=== PATIENT | male | born 1985 | race Caucasian/White ===

== ENCOUNTER 2016-12-14 09:06 | Emergency (ER) | payer BC ==
[2016-12-14] MEDS ORDERED: KETOROLAC 60 MG/2 ML VIAL IVP STA (09:28)
--- NOTE | 2016-12-14 09:30 | ED ---
General Adult HPI - General Chief complaint: Chest Pain Stated complaint: chest pain Time Seen by Provider: 12/14/16 09:15 Source: patient, RN notes reviewed Mode of arrival: wheelchair Limitations: no limitations - History of Present Illness Initial comments: This is a 31-year-old male presents emergency Department complaining of left- sided chest pain. Patient states she's had it before because he pushes huge rolls paper at work. Patient states it occurred about 3 weeks ago and it lasted for 5 days. Patient states it's worse when he is pushing the rolls and it hurts when he touches the area. Patient denies any difficulty breathing or shortness of breath per patient denies any diaphoresis. Patient denies any radiation of pain. Patient denies any nausea vomiting. Patient states he has had no headache denies any numbness weakness. Patient denies lightheadedness or dizziness. Patient denies abdominal pain. Patient denies any recent injury but he doesn't state that he does a lot of repetitive heavy pushing. - Related Data Home Medications Medication Instructions Recorded Confirmed Acetaminophen [Tylenol] 650 mg PO Q4H PRN 12/14/16 12/14/16 Allergies Allergy/AdvReac Type Severity Reaction Status Date / Time No Known Allergies Allergy Verified 12/14/16 09:35 Review of Systems ROS Statement: Those systems with pertinent positive or pertinent negative responses have been documented in the HPI. ROS Other: All systems not noted in ROS Statement are negative. Past Medical History Past Medical History: No Reported History History of Any Multi-Drug Resistant Organisms: None Reported Past Surgical History: No Surgical Hx Reported Past Psychological History: No Psychological Hx Reported Smoking Status: Never smoker Past Alcohol Use History: Occasional Past Drug Use History: None Reported General Exam - General Exam Comments Initial Comments: GENERAL: Patient is well-developed and well-nourished. Patient is nontoxic and well- hydrated and is in no acute distress. ENT: Neck is soft and supple. No significant lymphadenopathy is noted. Oropharynx is clear. Moist mucous membranes. Neck has full range of motion without eliciting any pain. EYES: The sclera were anicteric and conjunctiva were pink and moist. Extraocular movements were intact and pupils were equal round and reactive to light. Eyelids were unremarkable. PULMONARY: Unlabored respirations. Good breath sounds bilaterally. No audible rales rhonchi or wheezing was noted. CARDIOVASCULAR: There is a regular rate and rhythm without any murmurs gallops or rubs. Chest pain is reproducible with palpation ABDOMEN: Soft and nontender with normal bowel sounds. No palpable organomegaly was noted. There is no palpable pulsatile mass. SKIN: Skin is clear with no lesions or rashes and otherwise unremarkable. NEUROLOGIC: Patient is alert and oriented x3. Cranial nerves II through XII are grossly intact. Motor and sensory are also intact. Normal speech, volume and content. Symmetrical smile. MUSCULOSKELETAL: Normal extremities with adequate strength and full range of motion. No lower extremity swelling or edema. No calf tenderness. LYMPHATICS: No significant lymphadenopathy is noted PSYCHIATRIC: Normal psychiatric evaluation. Normal interpersonal interactions appears functionally intact in deals appropriately with others. No signs of depression. Limitations: no limitations Course Vital Signs 12/14/16 12/14/16 09:07 09:16 Temperature 98.0 F Pulse Rate 68 67 Respiratory 20 16 Rate Blood Pressure 133/92 144/95 O2 Sat by Pulse 99 99 Oximetry Medical Decision Making - Medical Decision Making EKG shows sinus bradycardia 54 bpm NE interval 148 QRS is 96 Q-T intervals 408 QTc is 386. EKG shows no ST segment elevation or T-wave abnormalities are noted Patient's chest x-ray shows no acute abnormality Patient received Toradol and it seemed to improve the patient's chest pain. - Lab Data Result diagrams: 12/14/16 09:45 12/14/16 09:45 Lab Results 12/14/16 12/14/16 12/14/16 Range/Units 09:45 09:45 09:45 WBC 3.9 (3.8-10.6) k/uL RBC 5.05 (4.30-5.90) m/uL Hgb 15.5 (13.0-17.5) gm/dL Hct 46.1 (39.0-53.0) % MCV 91.3 (80.0-100.0) fL MCH 30.8 (25.0-35.0) pg MCHC 33.7 (31.0-37.0) g/dL RDW 12.8 (11.5-15.5) % Plt Count 184 (150-450) k/uL Neutrophils % 52 % Lymphocytes % 34 % Monocytes % 7 % Eosinophils % 4 % Basophils % 1 % Neutrophils # 2.0 (1.3-7.7) k/uL Lymphocytes # 1.3 (1.0-4.8) k/uL Monocytes # 0.3 (0-1.0) k/uL Eosinophils # 0.2 (0-0.7) k/uL Basophils # 0.0 (0-0.2) k/uL PT (9.0-12.0) sec INR (<1.1) APTT (22.0-30.0) sec Sodium 142 (137-145) mmol/L Potassium 3.9 (3.5-5.1) mmol/L Chloride 105 (98-107) mmol/L Carbon Dioxide 26 (22-30) mmol/L Anion Gap 11 mmol/L BUN 10 (9-20) mg/dL Creatinine 0.79 (0.66-1.25) mg/dL Est GFR (MDRD) Af Amer >60 (>60 ml/min/1.73 sqM) Est GFR (MDRD) Non-Af >60 (>60 ml/min/1.73 sqM) Glucose 96 (74-99) mg/dL Calcium 8.9 (8.4-10.2) mg/dL Magnesium 2.0 (1.6-2.3) mg/dL Total Bilirubin 0.8 (0.2-1.3) mg/dL AST 23 (17-59) U/L ALT 43 (21-72) U/L Alkaline Phosphatase 80 (38-126) U/L Total Creatine Kinase 45 L (55-170) U/L CK-MB (CK-2) 0.4 (0.0-2.4) ng/mL CK-MB (CK-2) Rel Index 0.9 Troponin I <0.012 (0.000-0.034) ng/mL Total Protein 7.1 (6.3-8.2) g/dL Albumin 4.1 (3.5-5.0) g/dL 12/14/16 Range/Units 09:45 WBC (3.8-10.6) k/uL RBC (4.30-5.90) m/uL Hgb (13.0-17.5) gm/dL Hct (39.0-53.0) % MCV (80.0-100.0) fL MCH (25.0-35.0) pg MCHC (31.0-37.0) g/dL RDW (11.5-15.5) % Plt Count (150-450) k/uL Neutrophils % % Lymphocytes % % Monocytes % % Eosinophils % % Basophils % % Neutrophils # (1.3-7.7) k/uL Lymphocytes # (1.0-4.8) k/uL Monocytes # (0-1.0) k/uL Eosinophils # (0-0.7) k/uL Basophils # (0-0.2) k/uL PT 11.7 (9.0-12.0) sec INR 1.2 (<1.1) APTT 26.0 (22.0-30.0) sec Sodium (137-145) mmol/L Potassium (3.5-5.1) mmol/L Chloride (98-107) mmol/L Carbon Dioxide (22-30) mmol/L Anion Gap mmol/L BUN (9-20) mg/dL Creatinine (0.66-1.25) mg/dL Est GFR (MDRD) Af Amer (>60 ml/min/1.73 sqM) Est GFR (MDRD) Non-Af (>60 ml/min/1.73 sqM) Glucose (74-99) mg/dL Calcium (8.4-10.2) mg/dL Magnesium (1.6-2.3) mg/dL Total Bilirubin (0.2-1.3) mg/dL AST (17-59) U/L ALT (21-72) U/L Alkaline Phosphatase (38-126) U/L Total Creatine Kinase (55-170) U/L CK-MB (CK-2) (0.0-2.4) ng/mL CK-MB (CK-2) Rel Index Troponin I (0.000-0.034) ng/mL Total Protein (6.3-8.2) g/dL Albumin (3.5-5.0) g/dL Disposition Clinical Impression: Chest wall pain Disposition: HOME SELF-CARE Condition: Good Instructions: Chest Wall Pain (ED) Referrals: Brice Henning DO [Primary Care Provider] - 1-2 days Time of Disposition: 11:37
[2016-12-14 10:00] LABS: Basophils % (A) 1 %; CH 32.2; CHCM 35.5; Eosinophils # (A) 0.2 k/uL (0-0.7); Eosinophils % (A) 4 %; HCT 46.1 % (39.0-53.0); HDW 2.75; HGB 15.5 gm/dL (13.0-17.5); Luc # (Auto) 0.11; Luc % (Auto) 3; Lymphocytes # (A) 1.3 k/uL (1.0-4.8); Lymphocytes % (A) 34 %; MCH 30.8 pg (25.0-35.0); MCHC 33.7 g/dL (31.0-37.0); MCV 91.3 fL (80.0-100.0); Mean Platelet Volume 6.9; Monocytes # (A) 0.3 k/uL (0-1.0); Monocytes % (A) 7 %; Neutrophils % (A) 52 %; RBC 5.05 m/uL (4.30-5.90); RDW 12.8 % (11.5-15.5); WBC 3.9 k/uL (3.8-10.6); WBC (Perox) 3.92
--- NOTE | 2016-12-14 10:05 | XR ---
EXAMINATION TYPE: XR chest 2V DATE OF EXAM: 12/14/2016 10:00 AM COMPARISON: NONE HISTORY: Chest pain TECHNIQUE: Frontal and lateral views of the chest are obtained. FINDINGS: There is no focal air space opacity, pleural effusion, or pneumothorax seen. The cardiac silhouette size is within normal limits. The osseous structures are intact. IMPRESSION: No acute cardiopulmonary process.
[2016-12-14 10:14] LABS: INR 1.2 (<1.1); Prothrombin Time 11.7 sec (9.0-12.0)
[2016-12-14 10:15] LABS: ALT 43 U/L (21-72); AST 23 U/L (17-59); Alkaline Phosphatase 80 U/L (38-126); Anion Gap 11 mmol/L; Blood Urea Nitrogen 10 mg/dL (9-20); Calcium 8.9 mg/dL (8.4-10.2); Carbon Dioxide 26 mmol/L (22-30); Chloride 105 mmol/L (98-107); Glucose 96 mg/dL (74-99); Non-African American GFR(MDRD) >60 (>60 ml/min/1.73 sqM); Potassium 3.9 mmol/L (3.5-5.1); Sodium 142 mmol/L (137-145); Total Bilirubin 0.8 mg/dL (0.2-1.3); Total Protein 7.1 g/dL (6.3-8.2)
[2016-12-14 10:42] LABS: Creatine Kinase 45 U/L (55-170)
[2016-12-14 10:54] LABS: Creatine Kinase MB 0.4 ng/mL (0.0-2.4); Troponin I <0.012 ng/mL (0.000-0.034)
[2016-12-14 11:55] VITALS: BP 132/78; PULSE 66; RESP 18; TEMP 97.3
== END 2016-12-14 11:48 | disposition home or self-care (01) ==
LOC: EC 09:06
DX: R07.89 Other chest pain (principal); R00.1 Bradycardia, unspecified
CPT/HCPCS: 99285; 96374; 36415; 93005; 80053; 82550; 82553; 83735; 84484; 85025; 85610; 85730; 71020; J1885

== ENCOUNTER → 2021-08-10 | Outpatient (CLI) | payer MEDICAID ==
[2021-08-10 14:09] LABS: Hepatitis B Surface Antigen Nonreactive (Nonreactive); Hepatitis C IgG Antibody Nonreactive (Nonreactive)
[2021-08-10 19:48] LABS: HIV 2 AB Non-Reactive (Non-Reactive); HIV AB P24 Non-Reactive (Non-Reactive); HIV P24 AG Non-Reactive (Non-Reactive)
[2021-08-11 12:56] LABS: C. trachomatis,PCR Negative (Neg,Equiv); Chlamydia trachomatis Source Urine; N. gonorrhoeae,PCR Negative (Neg,Equiv); Neisseria Source Urine
== END | disposition home or self-care (01) ==
LOC: LABWHC1 07:16
PROVIDERS: ATTEND Obstetrics & Gynecology
DX: Z01.812 Encounter for preprocedural laboratory examination (principal); Z11.3 Encounter for screening for infections with a predominantly sexual mode of transmission; B19.9 Unspecified viral hepatitis without hepatic coma; Z22.4 Carrier of infections with a predominantly sexual mode of transmission
CPT/HCPCS: 36415; 86704; 86780; 86803; 87340; 87390; 87491; 87591